=== PATIENT | female | born 1970 | race Caucasian/White ===

== ENCOUNTER → 2018-02-06 20:28 | Outpatient (CLI) | payer BC | END | disposition home or self-care (01) | LOC: D.MAMMO 09:30 | DX: Z12.31 Encounter for screening mammogram for malignant neoplasm of breast (principal) ==

== ENCOUNTER → 2018-06-07 09:24 | Outpatient (CLI) | payer BC | END | disposition home or self-care (01) | LOC: D.RAD 09:24 | DX: R05 Cough (principal) ==

== ENCOUNTER → 2018-07-11 15:44 | Outpatient (CLI) | payer BC ==
[2018-07-14 14:11] LABS: IMMUNOGLOBULIN E 55 IU/mL (0-100)
== END | disposition home or self-care (01) ==
LOC: D.LABREF 15:44
PROVIDERS: Internal Medicine Pulmonary Disease
DX: J45.40 Moderate persistent asthma, uncomplicated (principal)

== ENCOUNTER 2020-03-06 13:27 | Emergency (ER) | payer BC ==
[~2020-03-06] VITALS: Ht 157.5 cm; Wt 94.5 kg
[~2020-03-06 13:27] MED LIST: AVAPRO75 MG PO; LIPITOR10 MG PO; PROTONIX40 MG PO; SINGULAIR10 MG PO; SYMBICORT 80-10.2 GM INH
[2020-03-06 13:52] VITALS: Ht 157.5 cm; Wt 94.5 kg
[2020-03-06 14:31] LABS: UDS - AMPHET NEGATIVE QUAL (NEGATIVE); UDS - BARB NEGATIVE QUAL (NEGATIVE); UDS - BENZO NEGATIVE QUAL (NEGATIVE); UDS - COCAINE NEGATIVE QUAL (NEGATIVE); UDS - OPIATE NEGATIVE QUAL (NEGATIVE); UDS - PCP NEGATIVE QUAL (NEGATIVE); UDS - THC NEGATIVE QUAL (NEGATIVE)
[2020-03-06 14:33] LABS: BILIRUBIN NEGATIVE (NEGATIVE); KETONE NEGATIVE (NEGATIVE); NITRITE NEGATIVE (NEGATIVE); UROBILINOGEN NORMAL mg/dL (< 2)
[2020-03-06 14:43] LABS: EPITHELIAL CELLS 0-5 /hpf (0-5)
[2020-03-06 14:44] LABS: BACTERIA FEW HPF (NONE SEEN)
[2020-03-06 15:20] LABS: BASOPHILS 0 % (0-2); EOSINOPHILS 0 % (0-7); HEMATOCRIT 38.5 % (36.0-48.0); HEMOGLOBIN 12.9 g/dL (12-16); IMMATURE GRANULOCYTES 0.1 % (0-5); LYMPHOCYTES 5.5 % (15-50); MCH 30.1 pg (26.0-34.0); MCHC 33.5 g/dL (31.0-37.0); MEAN PLATELET VOLUME 9.9 fL (7.4-10.4); MONOCYTES 4.5 % (2-11); NEUTROPHILS 89.9 % (40-80); RBC 4.28 10x6/uL (4.00-5.40); RDW 14.1 % (11.5-14.5); WBC 8.8 10x3/uL (4.8-10.8)
[2020-03-06 15:21] LABS: PLATELET COUNT 370 10x3/uL (130-400)
[2020-03-06 15:49] LABS: CALC OSMOLALITY 264 mosm/kg (275-300); CALCIUM 9.2 mg/dL (8.5-10.1); CARBON DIOXIDE 27.2 mmol/L (21.0-32.0); CHLORIDE - SERUM 98 mmol/L (98-107); CREATININE - SERUM 1.6 mg/dL (0.6-1.3); GLUCOSE 111 mg/dL (74-106); SODIUM 131 mmol/L (136-145); UREA NITROGEN 15 mg/dL (7-18); eGFR NON AFRICAN AMERICAN 36 mL/min (90-120)
[2020-03-06 15:57] LABS: ALBUMIN 3.4 g/dL (3.4-5.0); ALKALINE PHOSPHATASE 88 U/L (30-120); ALT (SGPT) 30 U/L (10-68); AMYLASE - SERUM 29 U/L (25-115); BILIRUBIN - TOTAL 0.35 mg/dL (0.2-1.3); LIPASE 65 U/L (73-393); PROTEIN - SERUM 8.1 g/dL (6.4-8.2); TROPONIN-I < 0.017 ng/mL (0.000-0.060)
[2020-03-06 22:49] VITALS: BP 116/73
== END 2020-03-06 22:49 | disposition other institution (70) ==
LOC: D.ER 13:27
PROVIDERS: Family Medicine
DX: R50.9 Fever, unspecified (principal); N20.0 Calculus of kidney; N13.30 Unspecified hydronephrosis; R11.2 Nausea with vomiting, unspecified; N39.0 Urinary tract infection, site not specified; I10 Essential (primary) hypertension; J45.909 Unspecified asthma, uncomplicated; R05 Cough; K21.9 Gastro-esophageal reflux disease without esophagitis